=== PATIENT | female | born 1995 | race Caucasian/White ===

== ENCOUNTER 2017-02-18 11:31 | Outpatient (CLI) | payer OTHER ==
--- NOTE | 2017-02-18 12:28 | DIAGNOSTIC IMAGING REPORT ---
PROCEDURE: XR ANKLE 3 OR 4 VIEWS - RIGHT INDICATION: FOOT PX/ ANKLE PX TECHNIQUE: Four views of the right ankle. COMPARISON: None. FINDINGS: Normal mineralization. No fractures. Ankle mortise intact. Normal osseous alignment. No tibiotalar joint effusion. No suspicious soft-tissue calcification or radiodense foreign bodies. Achilles tendon appears grossly normal. Mild soft tissue swelling. IMPRESSION: 1. Intact right ankle.
--- NOTE | 2017-02-18 12:30 | DIAGNOSTIC IMAGING REPORT ---
PROCEDURE: XR FOOT 3 VIEWS - RIGHT INDICATION: FOOT PAIN AFTER INJURY TECHNIQUE: Three views of the right foot. COMPARISON: None. FINDINGS: Normal mineralization. No fractures. Normal osseous alignment. No suspicious soft-tissue calcification or radiodense foreign bodies. Mild dorsal and lateral soft tissue swelling over the forefoot. IMPRESSION: 1. Intact right foot. 2. Mild dorsal and lateral soft tissue swelling without underlying fracture or radiodense foreign body.
[2017-03-03] MEDS ORDERED: METFORMIN HCL1000 MG PO (18:05)
[2017-03-03] MEDS ORDERED: ORTHO-CYCLEN PO (18:06)
[2017-03-03] MEDS ORDERED: NAPROSYN500 MG PO (18:07)
[2017-03-03] MEDS ORDERED: ADVIL200 M1 PO (18:08)
[2017-03-03] MEDS ORDERED: ALBUTEROL HFA60 DOSE IN (18:09)
[2017-03-03] MEDS ORDERED: BOTOX100 UNIT (18:11)
== END 2017-02-18 23:00 ==
LOC: XR SRH 11:31
DX: M79.671 Pain in right foot (principal); M25.571 Pain in right ankle and joints of right foot; M79.9 Soft tissue disorder, unspecified

== ENCOUNTER 2017-03-04 10:39 | Day surgery (SDC) | payer OTHER ==
[~2017-03-04] VITALS: Ht 162.6 cm; Wt 133.4 kg
[~2017-03-04 10:39] MED LIST: ADVIL200 M1 PO; ALBUTEROL HFA60 DOSE IN; BOTOX100 UNIT; METFORMIN HCL1000 MG PO; NAPROSYN500 MG PO; ORTHO-CYCLEN PO
[2017-03-04] MEDS ORDERED: PERCOCET1 TA1 PO (13:01)
--- NOTE | 2017-03-04 13:05 | Provider's Discharge Care Plan ---
Problem, Goal, Plan Problem List 1. STATUS POST PILONIDAL SINUS TRACT EXCISION Goals: Improve disease control, Improve function, Therapeutic intervention Instructions: Follow up as directed, Take meds as directed, stay off feet as much as possible, avoid prolonged standing.
--- NOTE | 2017-03-04 14:45 | Operative Report ---
Operative Report Date of Surgery: 02/23/17 Preoperate Diagnosis: pilonidal sinus tract disease Postoperative Diagnosis: polymyositis or disease/abscess Surgeon: Thompson Gunter MD Sales And Merchandising Representative Surgeon: none Procedure Performed: Excision of infected pilonidal sinus tract Anesthesia: Gen. endotracheal. Local 1% Xylocaine with epinephrine, 0.5% Marcaine with epinephrine Indications: A 22-year-old morbidly obese female, with approximately 1 week duration of intergluteal cleft/tail bone pain. Treated by her family physician with oral antibiotics. Patient was noted to have induration and erythema in the area of intergluteal cleft and scheduled for surgery. FINDINGS: Abscess cavity intergluteal cleft with surrounding shaggy necrotic granulation tissue. Measuring approximately after excision 6 x 3 1/2 cm x 3 cm. Surgical Technique: Patient brought to the operating room placed in the dorsal supine position where she underwent general endotracheal anesthesia by the anesthesiology department. After proper anesthesia take effect, patient was placed in prone jackknife position and her buttocks taped apart, exposing the intergluteal cleft. The intergluteal cleft and buttocks were prepped using Betadine and draped in a sterile fashion. Careful inspection of the intergluteal cleft proximal [address] down was noted to have a small puncta. The area around the induration was infiltrated using local anesthetic. The puncta was for carefully probed with a lacrimal duct probe and the abscess cavity entered. Using the probe as a guide, an incision was made in the skin and subcutaneous needs tissue into the abscess cavity. The incision was carried superiorly and inferiorly. Cultures were obtained from the abscess cavity. The shaggy granulation tissue was curetted using a sharp curet. The the extent of the abscess cavity was excised using an 10 blade down to normal viable tissue. The cavity was excised and handed off the field. Wound was irrigated copiously warm normal saline. The subcutaneous tissue was undermined just above the presacral space and approximated with interrupted 0 Polysorb suture. I felt that by approximating the cavity would not be quite so deep and wound care would be much easier. The closure would still allow drainage. No effort was made approximately the skin. The wound was dressed with bacitracin, Neosporin ointment and a covering of Xeroform gauze was applied along with a sterile occlusive dressing. Patient tolerated procedure well, was extubated, transferred to her room in stable condition. CONDITION: Stable COMPLICATIONS: None ESTIMATED BLOOD LOSS: 30 cc FLUIDS:: 700 cc lactated Ringer's DRAINS/PACKING: None SPECIMEN: Excised infected pilonidal sinus tract
[2017-03-04 16:08] VITALS: BP 128/68
== END 2017-03-04 16:49 | disposition home or self-care (01) ==
LOC: OR SRH 10:39 → SCU SRH 10:40 → OR SRH 12:30
PROVIDERS: Specialist
PROC: 0JB90ZZ Excision of Buttock Subcutaneous Tissue and Fascia, Open Approach (ICD-10-PCS; principal; 2017-03-04 12:30)
DX: L05.01 Pilonidal cyst with abscess (principal); E66.01 Morbid (severe) obesity due to excess calories; Z68.42 Body mass index [BMI] 45.0-49.9, adult
CPT/HCPCS: 29229; 29240; 50002; 60001; 70002; 80102; 84038; 90131; 90309; 90470; 93070